=== PATIENT | female | born 1950 | race Caucasian/White ===

== ENCOUNTER 2016-11-16 11:23 | Inpatient (IN) ==
[2016-11-16] MEDS ORDERED: ALUM/MAG/SIMETH/LIDO VISC 1:1 30 ML BOTTLE PO STA (11:53)
[2016-11-16] MEDS ORDERED: SODIUM CHLORIDE 0.9% 500 ML IV STA (11:53)
[2016-11-16] MEDS ORDERED: ONDANSETRON 4 MG/2 ML VIAL IV STA (11:53)
[2016-11-16] MEDS ORDERED: PANTOPRAZOLE 40 MG VIAL IV STA (11:53)
[2016-11-16] MEDS ORDERED: MORPHINE 2 MG/1 ML SYRINGE IV STA (11:53)
[2016-11-16 12:09] LABS: Basophils # 0.1 10*3/uL (0.0-0.2); Basophils % 0.5 % (0.0-0.8); Eosinophils # 0.1 10*3/uL (0.0-0.87); Eosinophils % 0.8 % (0.00-10.9); Hematocrit 45.9 VOL% (35.7-47.0); Hemoglobin 14.8 GM/DL (12.0-16.0); Immature Granulocytes % 0.4 %; Immature Granulocytes Absolute 0.05 #; Lymphocytes # 2.3 10*3/uL (1.4-4.0); Lymphocytes % 18.2 % (21.3-54.2); Mean Corpuscular HGB Conc 32.2 GM/DL (32-36); Mean Corpuscular Hemoglobin 30 PG (27-34); Mean Corpuscular Volume 91.6 FL (87-102); Monocytes # 0.7 10*3/uL (0.11-0.8); Monocytes % 5.3 % (1.7-12.7); Neutrophils # 9.5 10*3/uL (1.4-7.4); Neutrophils % 74.8 % (38.7-73.9); Platelet Count 320 T/CUMM (130-400); Red Blood Count 5.01 MC/CUMM (3.8-5.5); Red Cell Distribution Width 13.4 % (9.3-17.3); White Blood Count 12.6 T/CUMM (4-12)
[2016-11-16] MEDS ORDERED: ONDANSETRON 4 MG/2 ML VIAL ONE (12:10)
[2016-11-16] MEDS ORDERED: PANTOPRAZOLE 40 MG VIAL IV ONE (12:10)
[2016-11-16] MEDS ORDERED: MORPHINE 2 MG/1 ML SYRINGE ONE (12:11)
[2016-11-16] MEDS ORDERED: ALUM/MAG/SIMETH/LIDO VISC 1:1 30 ML BOTTLE PO ONE (12:11)
--- NOTE | 2016-11-16 12:13 | Emergency Department Note ---
Connor Flores Brooke, am scribing for, and in the presence of, Ghulam Lewis MD 12 :00. Debbie Flores Charles R, MD, personally performed the services described in this documentation, ascribed by Camille Ryan in my presence, and it is both accurate and complete . Arrival - Arrival Chief Complaint: Abdominal / Flank Pain Stated Complaint: stomach swollen- right mid pain on side. stomach h ED Nursing Triage Note: generalized abd pain over the past three weeks. reports stomach is getting larger. having some bright red rectal bleeding but reports has some hemmorroids. having loose stools followed by hard stools. Mode of Arrival: Ambulatory Limitations: No Limitations Source: Patient, Family (Daughter), RN Notes Reviewed Time Seen by Provider: 11/16/16 11:43 - History of Present Illness HPI Narrative: Patient is a 66 year old female who presents to the ED with c/o abdominal distention and rectal bleeding. Patient says the abdominal distention has been ongoing for the past three weeks. She says her abdomen is getting bigger. Daughter says Patient went from wearing medium to 2XL. Patient saw Anupam Orantes last week, and had an abdominal x-ray done. She was also given Lasix but she says her abdomen has not gotten any smaller. She says the right side of her abdomen hurts intermittently. She gets short of breath with any exertion and feels like she is smothering when laying flat. She also has been "very gassy " and had mostly watery diarrhea. Patient says she had "three brown and round solid balls of stool." She has also been nauseated for the past couple of days. Patient has had bright red rectal bleeding but states that she does have hemorrhoids. Daughter says she uses about "two or three" ingris-pads, daily. Patient had a colonoscopy, eight years ago, and was told she had polyps and to follow up but never did. She does not have a history of liver or gall bladder problems. Patient has had a hysterectomy. She has PMHx of afib, HTN, and dyslipidemia. She is a smoker. Onset (ago): week(s) (3) Allergies/Adverse Reactions: Allergies Allergy/AdvReac Type Severity Reaction Status Date / Time No Known Allergies Allergy Unverified 05/15/15 17:27 Home Medications: Home Medications Medication Instructions Recorded Confirmed Type HYDROcodone/ACETAMIN 10-325 [[place] 1 tablet PO Q6H PRN #20 tablet 07/06/14 Rx 10-325] Review of System - Review of System 12 point system: reviewed and no additional remarkable complaints except as stated - Review of System Constitutional: Absent: fever Respiratory: Present: other (shortness of breath with exertion). Absent: respiratory distress Gastrointestinal: Present: abdominal pain (right), nausea, diarrhea, other ( Abdominal distention and bright red rectal bleeding.) Skin: Absent: rash Medical,Surgical,& Family Hx - Medical History Cardio: History of: Cardiac Dysrhythmia (atrial fib flutter), Hypertension Endocrine: History of: Dyslipidemia - Social History Smoking Status: Current every day smoker Exam Vital Signs: Vital Signs Temperature 98.5 F 11/16/16 11:30 Pulse Rate 90 11/16/16 11:30 Respiratory Rate 18 11/16/16 11:30 Blood Pressure 127/83 11/16/16 11:30 O2 Sat by Pulse Oximetry 94 L 11/16/16 11:30 - General General appearance: alert, in no apparent distress - Head Head exam: Present: atraumatic, normocephalic - Eye Eye exam: Present: normal appearance, PERRL, EOMI - ENT ENT exam: Present: normal exam - Neck Neck exam: Present: normal inspection - Chest Chest inspection: Present: normal inspection, symmetric chest wall rise - Respiratory Respiratory exam: Present: rhonchi (bilateral) - Cardiovascular Cardiovascular exam: Present: tachycardia, irregular rhythm, normal heart sounds - Abdominal Exam Abdominal exam: Present: distention, hypoactive bowel sounds, other (bloated, gassy, and painful abdomen). Absent: soft - Rectal Exam Rectal exam: Present: other (Rectal bleeding according to Patient) - Extremities Exam Extremities exam: Present: normal inspection - Back Exam Back exam: Present: normal inspection - Neurological Exam Neurological exam: Present: alert, oriented X3 - Psychiatric Psychiatric exam: Present: normal affect, normal mood - Skin Skin exam: Present: warm, dry, intact, normal color Course Course Narrative: Patient has 3 week history of increasing abdominal girth. Patient has ascites. This looks malignant on CT most likely the source of the abdomen possibly metastatic versus some type of gynecological cancer - Consultations Consultation #1: Dr. Orantes will admit patient. 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
[2016-11-16 12:18] LABS: PT Patient Result 10.5 SECS
--- NOTE | 2016-11-16 12:39 | CT Report ---
Exam: CT abdomen and pelvis with intravenous contrast Exam date: 11/16/2016 11:54 AM Clinical History: 66 years,Female, abdominal and pelvic pain, radiating abdominal pain, generalized Technique: Axial computed tomography images of the abdomen and pelvis with intravenous contrast. All CT scans at this facility use one or more dose reduction techniques. Automated exposure control, MA/KV adjustment per patient size (including targeted exam Square dose is matched to indication) or iterative reconstruction technique Comparison: February 01, 2016 Findings: Lower thorax: No acute pathology within the lung bases. Abdomen: Liver: Confluent in size. No focal parenchymal abnormalities Gallbladder and bile ducts: Unremarkable. No calcified stones. No ductal dilatation. Pancreas: Pancreas is normal. Spleen: Spleen is normal. Adrenals: Hyperplastic with nodular appearance bilaterally.. Kidneys and ureters: Normal in size, echotexture and morphology. No hydronephrosis. No ureteral calculus. Stomach and bowel: Scattered diverticula along the distal colon. No active inflammatory changes. Appendix: Prior appendectomy. Pelvis: Bladder: Partially decompressed Reproductive: Prior hysterectomy. Irregular solid and cystic density within the pelvis measures approximately 4.5 cm in dimension, Abdomen and pelvis: Intraperitoneal space: 4 quadrant ascites with intermediate density fluid and innumerable mesenteric and peritoneal nodules with irregular heterogeneously enhancing mesentery along the anterior abdominal wall characteristic for omental caking. Multiple loops of small bowel appear adhesed anteriorly within the lower abdomen Bones/joints: Spondylitic changes throughout the spinal axis.. Soft tissues: No mass Vasculature: No aortic aneurysm. Atheromatous calcifications noted along the aorta and branch vessels. Lymph nodes: No adenopathy Impression: 1. Extensive mesenteric and peritoneal enhancing nodules with omental caking involving the anterior abdominal wall 2. Dominant enhancing nodule within the right hemipelvis, irregular in overall morphology. Differential considerations would include peritoneal metastasis versus ovarian neoplasm. Correlate with prior gynecologic surgical history 3. Four-quadrant ascites, likely malignant. Recommend diagnostic paracentesis PROCEDURE INTERPRETED AT [facility] DEPARTMENT OF RADIOLOGY Final Report Signed by: Guru Cam
[2016-11-16 12:44] LABS: Alanine Aminotransferase 13 U/L (13-56); Albumin 3.3 G/DL (3.4-5.0); Alkaline Phosphatase 93 U/L (45-117); Amylase 263 U/L (25-115); Aspartate Amino Transferase 21 U/L (0-37); Bilirubin,Total < 0.39 MG/DL (0.2-1.0); Blood Urea Nitrogen 9 MG/DL (7-18); Calcium 8.6 MG/DL (8.5-10.1); Glucose 95 MG/DL (74-106); Osmolality,Calculated 273.7 MOS/KG (273-304); Potassium 4.6 MMOL/L (3.5-5.1); Sodium 138 MMOL/L (136-145); Total Protein 6.6 G/DL (6.4-8.3); Troponin I Only < 0.015 NG/ML (0.00-0.045)
[2016-11-16 12:48] LABS: Lactic Acid 1.4 MMOL/L (0.4-2.0)
[2016-11-16 13:08] LABS: Apearance,Urine CLEAR (Clear); Bilirubin,Urine Negative (Negative); Blood, Urine Negative (Negative); Glucose,Urine (UA) Negative (Negative); Ketones,Urine Negative (Negative); Mucus,Urine Occasional /LPF (Occasional); Nitrite,Urine Negative (Negative); Protein,Urine Negative; RBC,Urine 1 /HPF (0-4); Squamous Epithelial Cell,Urine Occasional /HPF (0-10); Urine Color Yellow (Yellow); Urine Specific Gravity 1.048 (1.001-1.035); Urine Urobilinogen < 2.0 EU/DL (0.2-1.0)
--- NOTE | 2016-11-16 13:23 | XRay Report ---
History: Abdominal pain Date: 11/16/2016 Study: Chest x-ray single view Comparison exam: January 10, 2009 The cardiac silhouette is not enlarged. There is no mediastinal mass. There is moderate aortic arch calcification. The pulmonary vasculature is not engorged. There is no gross pleural effusion. There is no confluent infiltrate to suggest pneumonia. Shallow breath. There is osteopenia and mild to moderate thoracic spondylosis. Impression: No acute cardiopulmonary process. No significant interval change PROCEDURE INTERPRETED AT [facility] DEPARTMENT OF RADIOLOGY Final Report Signed by: Dr. Sherrell Dorman
--- NOTE | 2016-11-16 13:24 | XRay Report ---
History: Abdominal pain Date: 11/16/2016 Study: Flat and erect abdomen Comparison exam: No previous similar study There is no evidence of pneumoperitoneum. The bowel gas pattern is nonobstructive. There is contrast material within the genitourinary tract from earlier CT scan. There is no evidence of hydronephrosis. Phleboliths overlie the pelvis. There is moderate degenerative disc disease of the lumbar spine. Impression: No acute abdominal process PROCEDURE INTERPRETED AT [facility] DEPARTMENT OF RADIOLOGY Final Report Signed by: Dr. Sherrell Dorman
[2016-11-16] MEDS ORDERED: MORPHINE 2 MG/1 ML SYRINGE IV PRN (14:19)
[2016-11-16] MEDS ORDERED: LACTULOSE 20 GM/30 ML UDCUP PO PRN (14:19)
[2016-11-16] MEDS ORDERED: GLUCAGON 1 MG VIAL IM PRN (14:19)
[2016-11-16] MEDS ORDERED: ACETAMINOPHEN 325 MG TABLET PO PRN (14:19)
[2016-11-16] MEDS ORDERED: ALBUTEROL/IPRATROPIUM 3 ML NEB RESP TX PRN (14:19)
[2016-11-16] MEDS ORDERED: DEXTROSE 50% 25 GM/50 ML SYRINGE IV PRN (14:19)
[2016-11-16] MEDS: SODIUM CHLORIDE 0.9% 1,000 ML IV SCH (15:07)
[2016-11-16] MEDS: methylPREDNISolone SOD SUC 40 MG/1 ML VIAL IV SCH ×2 (15:51→22:07)
[2016-11-16] MEDS ORDERED: diphenhydrAMINE CAP 25 MG CAPSULE PO PRN (16:03)
[2016-11-16] MEDS: INSULIN REGULAR 100 UNIT/ML SUBCUT SCH ×2 (18:40→20:44)
--- NOTE | 2016-11-16 19:57 | Ultrasound Report ---
Exam: Ultrasound-guided paracentesis Clinical history: Ascites, possibly malignant Physician: Dr. Kuldip Cam Procedure: Informed consent was obtained prior to procedure. A formal timeout was performed. Maximum sterile barrier technique was used. The right lower quadrant was prepped and draped in sterile fashion. Under sonographic guidance, a 6 Ivorian safety centesis catheter and needle were advanced into the ascites using trocar technique. A captured sonographic image documents needle position. The needle was removed. Through the catheter, we obtained a total of 250 cc of straw-colored ascites. No additional fluid could be obtained. Therefore, the catheter was removed. A bandage was placed at the puncture site. The patient tolerated the procedure well. Complications: None. Estimated blood loss: Less than 5 mL. Impression: Technically successful ultrasound guided paracentesis. PROCEDURE INTERPRETED AT [facility] DEPARTMENT OF RADIOLOGY Final Report Signed by: Guru Cam
[2016-11-16] MEDS: DOCUSATE SODIUM 100 MG CAPSULE PO SCH (20:44)
[2016-11-16] MEDS: ALPRAZolam 0.5 MG TABLET PO SCH (20:44)
[2016-11-16] MEDS: METOPROLOL TARTRATE 50 MG TABLET PO SCH (20:44)
[2016-11-16] MEDS: ROSUVASTATIN 10 MG TABLET PO SCH (20:44)
[2016-11-16] MEDS: ENOXAPARIN 40 MG/0.4 ML SYRINGE SUBCUT SCH (20:45)
[2016-11-16 20:59] LABS: RBC,Peritoneal Fluid 3627 T/CUMM
[2016-11-16 21:03] LABS: Neutrophils,Peritoneal Fluid 13 %
--- NOTE | 2016-11-17 06:26 | Family Practice History&Phys ---
Assessment and Plan (1) Abdominal pain Status: Acute Assessment and plan: 11/16/2016: Patient clearly has abdominal distention/ascites probable metastatic nodules. Getting oncology consult and GI services to see her. Paracentesis has been performed Current Visit: Yes (2) COPD (chronic obstructive pulmonary disease) Status: Acute Assessment and plan: 11/17/2016: Patient is on 2 L of O2 at present. Not having any respiratory distress although she is a little short of breath secondary to abdominal distention Current Visit: Yes (3) Rectal bleeding Status: Acute Assessment and plan: 11/16/2016: Presumably from hemorrhoids had some bright red bleeding but not any bleeding at present Current Visit: Yes History of Present Illness Chief complaint: Abdominal distention History of present illness: Ms. Mccarthy is a 66 year old female Well-known to me came to my clinic about a week ago with some moderate abdominal distention. Had been going on about a week and 1/2-2 prior to being seen. She thought it was mostly bloating, had been having some gas. A flat and upright abdomen revealed no air-fluid free air. Elected to watch it for a few more days at that time. Patient came back to the emergency room last night with worsening distention. CT scan of the abdomen and pelvis was done which revealed alfred four-quadrant ascites and diffuse mesenteric and peritoneal nodules. She has been having a little bit of shortness of breath associated with this, especially some orthopnea. Also having some mild diffuse discomfort related to the swelling. Recently had a little bleeding presumably from hemorrhoids, this is mostly resolved. We are going to put in the hospital and get a GI consult along with oncology. He had an did a abdominal paracentesis for comfort as well as diagnostic evaluation. This is done her original radiology of her shift are systems from this case. Patient's history is mostly unremarkable otherwise except for atrial fibrillation, hypertension and anemia. Her daughter is a nurse in the hospital. I have discussed this with her Home Medications Medication Instructions Recorded Confirmed Type ALPRAZolam [Alprazolam] 0.5 mg PO BID 11/16/16 11/16/16 History Aspirin EC Tab 81 mg PO MOWEFR@0800 11/16/16 11/16/16 History Cyanocobalamin (Vitamin B-12) 1,000 mcg PO QAM 11/16/16 11/16/16 History [Vitamin B-12] Krill/Om-3/Dha/Epa/Phospho/Ast 1 each PO QAM 11/16/16 11/16/16 History [[place]-3 Krill Oil 300 mg Sfgl] Levothyroxine Tab [Synthroid Tab] 50 mcg PO DAILY@0700 11/16/16 11/16/16 History Metoprolol Tartrate 50 mg PO DAILY@1700 11/16/16 11/16/16 History Montelukast Tab [Singulair Tab] 10 mg PO QAM 11/16/16 11/16/16 History Rosuvastatin [Crestor] 10 mg PO BEDTIME 11/16/16 11/16/16 History dilTIAZem HCl [Diltiazem ER] 240 mg PO QAM 11/16/16 11/16/16 History diphenhydrAMINE CAP [Benadryl Cap] 50 mg PO BEDTIME PRN 11/16/16 11/16/16 History Allergies Allergy/AdvReac Type Severity Reaction Status Date / Time No Known Allergies Allergy Unverified 07/06/14 17:27 12 point system: reviewed and no additional remarkable complaints except as stated (Except as mentioned in history and physical.) - Constitutional Constitutional: Present: fatigue - EENT Nose, mouth and throat: Absent: dysphagia - Respiratory Respiratory: Present: dyspnea Medical,Surgical,& Family Hx - Medical History Cardio: History of: Cardiac Dysrhythmia (atrial fib flutter), Hypertension Psychological: History of: Anxiety Disorders, Depression Endocrine: History of: Dyslipidemia, Thyroid Disorder (hypo- snythroid) Renal: History of: Renal Problems (spot on kidney- negative so far) Gastrointestinal: History of: GI Problems (hemmroid bleeding and chronic diareah ) - Surgical History Abdominal Surgeries: Surgical HX of: Colonoscopy (8 years ago- polyps 2year follow up. never went back) Patient denies: EGD Reproductive Surgeries: Surgical HX of;: Hysterectomy (25-30 years ago. bladder & rectal tach, left overaries) - Family History Family History: Reports;: Family Anesthesia Reaction, Family Cancer (sister- brain mets double mastectomy), Family Diabetes, Family Heart Disease, Family Hypertension, Family Psychiatric Problems, Family Stroke - Social History Smoking Status: Current every day smoker Frequency of Alcohol Use: None Type of Drug Use: None Exam - Constitutional Vitals: Period Temp Pulse Resp BP Sys/Deutsch Pulse Ox Last 24 Hr 97.3 F-98.5 F 64-92 16-20 108-161/58-85 90-97 Exam: Generally very pleasant lady. She is alert and oriented no acute distress except for some mild to moderate shortness of breath related to abdominal pressure and pulmonary field. HEENT pupils are equally reactive to light neck is supple trachea midline oropharynx is normal Cardiovascular no gallop or rub patient denies any chest pain Lungs a few basal rales but no respiratory distress Abdomen is noted with ascites per CT scan of abdomen and pelvis. Extremities no clubbing cyanosis or edema, positive radial pulses, dorsalis pedal pulses Results - Labs CBC & BMP: 11/16/16 11:58 11/16/16 11:58
[2016-11-17 06:30] LABS: Basophils % 0.1 % (0.0-0.8); Hematocrit 40.1 VOL% (35.7-47.0); Immature Granulocytes % 0.7 %; Immature Granulocytes Absolute 0.07 #; Lymphocytes % 9.4 % (21.3-54.2); Mean Corpuscular HGB Conc 32.4 GM/DL (32-36); Mean Corpuscular Hemoglobin 30 PG (27-34); Mean Corpuscular Volume 92.4 FL (87-102); Mean Platelet Volume 9.4 FL (9.6-12.0); Monocytes # 0.1 10*3/uL (0.11-0.8); Monocytes % 1.1 % (1.7-12.7); Neutrophils # 9.3 10*3/uL (1.4-7.4); Neutrophils % 88.7 % (38.7-73.9); Platelet Count 278 T/CUMM (130-400); Red Blood Count 4.34 MC/CUMM (3.8-5.5); Red Cell Distribution Width 13.3 % (9.3-17.3); White Blood Count 10.4 T/CUMM (4-12)
[2016-11-17] MEDS: methylPREDNISolone SOD SUC 40 MG/1 ML VIAL IV SCH ×2 (06:30→16:35)
[2016-11-17] MEDS: LEVOTHYROXINE 50 MCG TABLET PO SCH (06:32)
[2016-11-17 06:47] LABS: Albumin 2.8 G/DL (3.4-5.0); Bilirubin,Total 0.7 MG/DL (0.2-1.0); Calcium 8.2 MG/DL (8.5-10.1); Magnesium 2.4 MG/DL (1.8-2.4); Osmolality,Calculated 280.4 MOS/KG (273-304); Potassium 4.6 MMOL/L (3.5-5.1); Risk Ratio 3.12; Total Protein 6.1 G/DL (6.4-8.3); VLDL CHOLESTEROL 19.8 MG/DL
[2016-11-17] MEDS: INSULIN REGULAR 100 UNIT/ML SUBCUT SCH ×4 (07:12→20:53)
--- NOTE | 2016-11-17 08:58 | Oncology Progress Note ---
Oncology Subjective PN Interval history: Patient with several week history of abdominal distention admitted now status post paracentesis. Cytology is pending as well as CA 125 levels. The patient does have a strongly positive family history of malignancy with one sister succumbing to metastatic breast cancer. The remainder of the family history was not detailed but is noted to be positive per the patient's daughter's report who is a nurse here at [employer]. There is also report of rectal bleeding also for a few weeks requiring absorptive pads. Her last colonoscopy was about 8 years ago. She has extreme abdominal distention but does not appear in acute distress. She does report being up-to-date on mammogram herself. My initial presumption on this case is most likely ovarian cancer. Would need to exclude colon cancer given the rectal bleeding although she is not anemic. If ovarian cancer is diagnosed, then she would need to see gynecologic oncology although I think neoadjuvant chemotherapy would be the preferred initial plan of care. I will follow closely during this hospitalization. Exam - Constitutional Vitals: Period Temp Pulse Resp BP Sys/Deutsch Pulse Ox Last 24 Hr 97.2 F-98.5 F 64-92 16-20 108-161/58-85 90-97 Results - Labs CBC & BMP: 11/17/16 05:46 11/17/16 05:46
[2016-11-17] MEDS: CYANOCOBALAMIN 500 MCG TABLET PO SCH (09:42)
[2016-11-17] MEDS: MONTELUKAST 10 MG TABLET PO SCH (09:42)
[2016-11-17] MEDS: DILTIAZEM CD 240 MG CAPSULE PO SCH (09:42)
[2016-11-17] MEDS: OMEGA 3 ACID ETHYL ESTERS 1 GM CAPSULE PO SCH (09:44)
[2016-11-17] MEDS: DOCUSATE SODIUM 100 MG CAPSULE PO SCH ×2 (09:44→20:53)
[2016-11-17] MEDS: ALPRAZolam 0.5 MG TABLET PO SCH ×2 (09:44→20:53)
[2016-11-17] MEDS: PANTOPRAZOLE 40 MG VIAL IV SCH (09:44)
[2016-11-17 09:45] LABS: Carcinoembryonic Antigen < 0.5 NG/ML (0.0-5.0)
--- NOTE | 2016-11-17 09:56 | XRay Report ---
XR chest 2V Indication: Shortness of breath. Chest 2 views: Comparison yesterday shows stable normal heart size, elevated right hemidiaphragm, but increased interstitial prominence of the lungs with peribronchial thickening. Pleural spaces remain clear. No focal pneumonia shown. Impression: Increased interstitial prominence of the lungs, either mild fluid overload or exacerbation of airways disease. PROCEDURE INTERPRETED AT [facility] DEPARTMENT OF RADIOLOGY Final Report Signed by: Zane Ryan M.D.
--- NOTE | 2016-11-17 10:37 | Gastrointestinal Consult Note ---
<Elisa Ness - Last Filed: 11/17/16 10:31> Assessment and Plan (1) Abdominal pain Status: Acute Assessment and plan: [id number] history of abdominal distention and discomfort with also reported rectal bleeding. CT findings on yesterday noted as below. CA 125 is pending at present time. Prior endoscopy noted as below. Change to clear liquid diet anticipate potential colonoscopy on tomorrow for further evaluation of rectal bleeding. Plan an addendum to follow Dr. George. Current Visit: Yes History of Present Illness Chief complaint: Abdominal distention History of present illness: Ms. Mccarthy is a 66 year old female who was admitted to the hospital yesterday after being seen by Dr. Orantes in clinic. Patient states that she was in her usual state of health until approximately 3 weeks ago when she noticed that she had onset of some abdominal bloating and distention. She states that she also had an onset of some bright red rectal bleeding with and without bowel movements. Patient does state that she is not very compliant with going to her physician for regular checkups however approximately a week and a half ago she did present to the clinic to see Dr. Orantes due to the abdominal distention was worsening. At that time she apparently had an abdominal x-ray with no acute findings and was placed on some laxatives and sent home. Patient states that the distention continued as well as off-and-on rectal bleeding until she contacted Dr. Orantes's office again on yesterday. Patient then had a CT of the abdomen at that time with IV contrast which showed extensive mesenteric and peritoneal and enhancing nodules with omental caking of the anterior abdominal wall as well as nodule to the right hemipelvis with differential of peritoneal metastasis versus ovarian neoplasm. Patient was also found to have ascites. Patient has had hysterectomy in the past however states she did not have an oophorectomy. She was admitted for further workup and last night she underwent diagnostic paracentesis with 250 cc of fluid removed. Dr. Truong is also consulted with patient at this time in she has noted to have a negative CEA as well as CA-19-9 however CA 125 is pending. Patient has a very strong history of cancer throughout her family. She states that she has 17 siblings and several of them have from cancer with some of them at fairly early ages. Patient states she has not had any abdominal pain, nausea or vomiting. She has not had any recent weight loss, night sweats or chills. She states that her last colonoscopy was approximately 8 years ago however she does not recall the findings at that time. This was done by Dr. George. Patient admits that she is not very compliant with her follow-up appointments as well and did not return as recommended for repeat colon scope. H&H is stable at 13/40. Home Medications Medication Instructions Recorded Confirmed Type ALPRAZolam [Alprazolam] 0.5 mg PO BID 11/16/16 11/16/16 History Aspirin EC Tab 81 mg PO MOWEFR@0800 11/16/16 11/16/16 History Cyanocobalamin (Vitamin B-12) 1,000 mcg PO QAM 11/16/16 11/16/16 History [Vitamin B-12] Krill/Om-3/Dha/Epa/Phospho/Ast 1 each PO QAM 11/16/16 11/16/16 History [[place]-3 Krill Oil 300 mg Sfgl] Levothyroxine Tab [Synthroid Tab] 50 mcg PO DAILY@0700 11/16/16 11/16/16 History Metoprolol Tartrate 50 mg PO DAILY@1700 11/16/16 11/16/16 History Montelukast Tab [Singulair Tab] 10 mg PO QAM 11/16/16 11/16/16 History Rosuvastatin [Crestor] 10 mg PO BEDTIME 11/16/16 11/16/16 History dilTIAZem HCl [Diltiazem ER] 240 mg PO QAM 11/16/16 11/16/16 History diphenhydrAMINE CAP [Benadryl Cap] 50 mg PO BEDTIME PRN 11/16/16 11/16/16 History Allergies Allergy/AdvReac Type Severity Reaction Status Date / Time No Known Allergies Allergy Unverified 07/06/14 17:27 Medical,Surgical,& Family Hx - Medical History Cardio: History of: Cardiac Dysrhythmia (atrial fib flutter), Hypertension Psychological: History of: Anxiety Disorders, Depression Endocrine: History of: Dyslipidemia, Thyroid Disorder (hypo- snythroid) Renal: History of: Renal Problems (spot on kidney- negative so far) Gastrointestinal: History of: GI Problems (hemmroid bleeding and chronic diareah ) - Surgical History Abdominal Surgeries: Surgical HX of: Colonoscopy (8 years ago- polyps 2year follow up. never went back) Patient denies: EGD Reproductive Surgeries: Surgical HX of;: Hysterectomy (25-30 years ago. bladder & rectal tach, left overaries) - Family History Family History: Reports;: Family Anesthesia Reaction, Family Cancer (sister- brain mets double mastectomy), Family Diabetes, Family Heart Disease, Family Hypertension, Family Psychiatric Problems, Family Stroke - Social History Smoking Status: Current every day smoker Frequency of Alcohol Use: None Type of Drug Use: None 12 point system: reviewed and no additional remarkable complaints except as stated - Constitutional Constitutional: Present: as per HPI - EENT Eyes: Present: as per HPI Ears: Present: as per HPI Nose, mouth and throat: Present: as per HPI - Cardiovascular Cardiovascular: Present: as per HPI - Respiratory Respiratory: Present: as per HPI - Gastrointestinal Gastrointestinal: Present: as per HPI, bloating, hematochezia - Genitourinary Genitourinary: Present: as per HPI - Musculoskeletal Musculoskeletal: Present: as per HPI - Neurological Neurological: Present: as per HPI - Psychiatric Psychiatric: Present: as per HPI - Endocrine Endocrine: Present: as per HPI - Hematologic/Lymphatic Hematologic/Lymphatic: Present: as per HPI Exam - Constitutional Vitals: Period Temp Pulse Resp BP Sys/Deutsch Pulse Ox Last 24 Hr 97.2 F-98.5 F 64-92 16-20 108-161/58-85 90-97 General appearance: normal weight, no acute distress - Head Head exam: Present: normal inspection, normocephalic - Eye Eye exam: Present: other (Lids and conjunctivae are unremarkable). Absent: scleral icterus - ENT ENT exam: Present: normal exam, normal oropharynx - Neck Neck exam: Present: normal inspection - Respiratory Respiratory exam: Present: clear to auscultation bilaterally. Absent: rales, rhonchi, wheezes - Cardiovascular Cardiovascular exam: Present: regular rate and rhythm. Absent: diastolic murmur , JVD, systolic murmur - GI/Abdominal GI/Abdominal exam: Present: normal bowel sounds, ascites, distended, tenderness , soft. Absent: mass, organomegaly - Extremities Exam Extremities exam: Present: normal inspection, full ROM - Back Exam Back exam: Present: normal inspection - Neurological Exam Neurological exam: Present: alert, oriented X3 - Psychiatric Psychiatric exam: Present: normal affect, normal mood - Skin Skin exam: Present: normal color, warm, dry Results - Labs CBC & BMP: 11/17/16 05:46 11/17/16 05:46 Lab Results: I have reviewed the past 24 hour labs - Diagnostic Findings Procedure: CT Abdomen and Pelvis: report reviewed by me <Fede George - Last Filed: 11/17/16 20:36> History of Present Illness Chief complaint: 3030 History of present illness: Ms. Mccarthy is a 66 year old female Exam - Constitutional Vitals: Period Temp Pulse Resp BP Sys/Deutsch Pulse Ox Last 24 Hr 97.2 F-98.2 F 60-79 18-20 108-124/58-73 90-95 Results - Labs CBC & BMP: 11/17/16 05:46 11/17/16 05:46
[2016-11-17] MEDS ORDERED: BISACODYL 5 MG TABLET PO ONE (12:00)
[2016-11-17] MEDS ORDERED: POLYETHYLENE GLYCOL POWDER 255 GM BOTTLE PO ONE (13:00)
[2016-11-17] MEDS: ONDANSETRON 4 MG/2 ML VIAL IV PRN ×2 (16:32→22:22)
[2016-11-17] MEDS: METOPROLOL TARTRATE 50 MG TABLET PO SCH (16:34)
[2016-11-17] MEDS: SODIUM CHLORIDE 0.9% 1,000 ML IV SCH (18:54)
[2016-11-17] MEDS: ENOXAPARIN 40 MG/0.4 ML SYRINGE SUBCUT SCH (20:52)
[2016-11-17] MEDS: ROSUVASTATIN 10 MG TABLET PO SCH (20:53)
[2016-11-17] MEDS ORDERED: MAGNESIUM CITRATE 300 ML BOTTLE PO ONE (21:00)
[2016-11-18] MEDS: methylPREDNISolone SOD SUC 40 MG/1 ML VIAL IV SCH ×3 (00:25→16:12)
[2016-11-18] MEDS: LEVOTHYROXINE 50 MCG TABLET PO SCH (06:32)
[2016-11-18] MEDS ORDERED: ASPIRIN EC 81 MG TABLET PO SCH (08:00)
[2016-11-18] MEDS: INSULIN REGULAR 100 UNIT/ML SUBCUT SCH ×3 (08:26→15:53)
--- NOTE | 2016-11-18 08:26 | Oncology Progress Note ---
Oncology Subjective PN Interval history: Stable overnight. Case discussed again with patient and daughter. For colonoscopy today. CEA and CA 19 are normal. Unfortunately the CA 125 ovarian cancer antigen is no longer performed at [facility] and is an approximately 2-3 day turnaround time due to its send out status. This may actually lead to a longer hospitalization. We are also waiting cytology which I anticipate later today. I have given the nurses instructions to forward these results to me. We did discuss the possibility of a diagnostic laparoscopy if the tumor marker and cytology are not helpful. Exam - Constitutional Vitals: Period Temp Pulse Resp BP Sys/Deutsch Pulse Ox Last 24 Hr 96.8 F-98.2 F 60-85 18-20 116-124/64-76 90-94 Results - Labs CBC & BMP: 11/17/16 05:46 11/17/16 05:46
[2016-11-18] MEDS: MONTELUKAST 10 MG TABLET PO SCH (08:27)
[2016-11-18] MEDS: OMEGA 3 ACID ETHYL ESTERS 1 GM CAPSULE PO SCH (08:27)
[2016-11-18] MEDS: ALPRAZolam 0.5 MG TABLET PO SCH (08:27)
[2016-11-18] MEDS: CYANOCOBALAMIN 500 MCG TABLET PO SCH (08:27)
[2016-11-18] MEDS: DOCUSATE SODIUM 100 MG CAPSULE PO SCH (08:27)
[2016-11-18] MEDS: DILTIAZEM CD 240 MG CAPSULE PO SCH (08:36)
[2016-11-18] MEDS: PANTOPRAZOLE 40 MG VIAL IV SCH (08:37)
[2016-11-18] MEDS ORDERED: PROPOFOL 200 MG/20 ML VIAL IV ONE (11:57)
[2016-11-18] MEDS ORDERED: LIDOCAINE 2% 5 ML VIAL ONE (11:57)
--- NOTE | 2016-11-18 12:11 | Operative Note ---
Date of procedure: 11/18/16 Pre-op diagnosis: Abnormal CT for screening colonoscopy Procedure: Colonoscopy 66-year-old female with abnormal CT and suspected malignant ascites of unclear etiology now for screening colonoscopy. Informed consent was obtained for the patient She was sedated with general anesthesia per anesthesia protocol. Patient was placed in left lateral decubitus position digital exam was normal the Olympus flexible video colonoscope was inserted into the anal canal advanced under direct vision level cecum. Findings: Withdrawal time 7 minutes Prep fair Cecum-normal identified ileocecal valve and appendiceal orifice. Exam limited by prep Descending: Normal exam limited by prep Transverse:-Normal exam limited by prep Descending colon-diverticulosis exam limited by prep Sigmoid colon diverticulosis exam limited by prep Rectum-normal to direct retroflexed views 2+ internal hemorrhoids seen. No mass lesion seen throughout the colon. The procedure terminated placed our procedure well she is discharge recovery in good condition Postop diagnosis: 1. Diverticulosis-maintain adequate fiber and fluid intake 2. Abnormal CT-no colonic explanation suspect this is ovarian in origin and would continue oncologic workup per Dr. recio Anesthesia: other (General) Surgeon / Physician: Fede George Estimated blood loss: none Specimens: none sent Condition: stable Disposition: post procedure unit Results - Labs CBC & BMP: 11/17/16 05:46 11/17/16 05:46 Discharge Plan - Discharge Medications No Action ALPRAZolam [Alprazolam] 0.5 mg PO BID Aspirin EC Tab 81 mg PO MOWEFR@0800 Cyanocobalamin (Vitamin B-12) [Vitamin B-12] 1,000 mcg PO QAM dilTIAZem HCl [Diltiazem ER] 240 mg PO QAM diphenhydrAMINE CAP [Benadryl Cap] 50 mg PO BEDTIME PRN PRN Reason: Insomnia Levothyroxine Tab [Synthroid Tab] 50 mcg PO DAILY@0700 Metoprolol Tartrate 50 mg PO DAILY@1700 Montelukast Tab [Singulair Tab] 10 mg PO QAM Rosuvastatin [Crestor] 10 mg PO BEDTIME Krill/Om-3/Dha/Epa/Phospho/Ast [[place]-3 Krill Oil 300 mg Sfgl] 1 each PO QAM - Follow Up or Referral - Forms/Instructions
--- NOTE | 2016-11-18 13:48 | Anesthesia Post-Op ---
Anesthesia Post OP - Post Ansesthetic Evaluation Patient seen in post op: Yes Resp: within normal limits CV: within normal limits Mental: within normal limits Temp: within normal limits Fsxm-Xd-Brbeosear: within normal limits Nausea and Vomiting: within normal limits Pain: within normal limits
[2016-11-18] MEDS: SODIUM CHLORIDE 0.9% 1,000 ML IV SCH (14:27)
[2016-11-18 16:01] VITALS: BP 126/63
[2016-11-18] MEDS: METOPROLOL TARTRATE 50 MG TABLET PO SCH (16:12)
--- NOTE | 2016-11-18 16:40 | Discharge Summary ---
Hospital Course - Hospital Course Hospital Course: Patient came in with abdominal distention. She had a CT scan done which showed cancer nodules all throughout her abdominal cavity with severe ascites and some exudate in the peritoneal cavity. She does not have any abdominal pain. We did do a paracentesis, only got about 280 cc out but sent for cytology and pathology. She is going to be followed with oncology as well as gastroenterology. We are going to get surgery involved depending on the studies of the test. We are awaiting the CA 125 ovarian cancer antigen result at this time. Patient is to follow with me in about a month or sooner if needed if she has any shortness of breath or worsening of symptoms to come back to my clinic as well. She may need a repeat paracentesis if swelling continues. We will continue to try to maintain her lifestyle as close to normal as she has been. Diagnosis - Discharge Diagnosis (1) Abdominal pain Status: Acute (2) COPD (chronic obstructive pulmonary disease) Status: Acute (3) Rectal bleeding Status: Acute Specialty Discharge - Follow Up or Referrals Follow up with: Anupam Orantes DO [Family Provider] - 1 Month Discharge Plan - Discharge Data Disposition: Disch To Home/Self Care Condition at Discharge: Stable Discharge Diet: advance to your usual diet Activity: resume usual activities as tolerated Hygiene: no restrictions Weight Bearing at Discharge: weight bear as tolerated Driving: no restrictions Contact your physician if you experience:: fever over 101, Shortness of breath - Discharge Medications Continue ALPRAZolam [Alprazolam] 0.5 mg PO BID Aspirin EC Tab 81 mg PO MOWEFR@0800 Cyanocobalamin (Vitamin B-12) [Vitamin B-12] 1,000 mcg PO QAM dilTIAZem HCl [Diltiazem 24Hr ER] 240 mg PO QAM diphenhydrAMINE CAP [Benadryl Cap] 50 mg PO BEDTIME PRN PRN Reason: Insomnia Levothyroxine Tab [Synthroid Tab] 50 mcg PO DAILY@0700 Metoprolol Tartrate 50 mg PO DAILY@1700 Montelukast Tab [Singulair Tab] 10 mg PO QAM Rosuvastatin [Crestor] 10 mg PO BEDTIME Krill/Om-3/Dha/Epa/Phospho/Ast [[place]-3 Krill Oil 300 mg Sfgl] 1 each PO QAM - Follow Up or Referral Follow Up: Anupam Orantes DO [Family Provider] - 1 Month - Forms/Instructions Exam - Constitutional Vitals: Period Temp Pulse Resp BP Sys/Deutsch Pulse Ox Last 24 Hr 96.6 F-98.2 F 58-85 16-20 97-142/50-76 90-98 Discharge Results Procedures and tests throughout hospitalization: Pending Orders 11/16/16 19:24 Cytology Request Routine Labs on day of discharge: Labs from last 24 hours 11/16/16 11:58 CA 125 Antigen 1051 H DS: Provider Date of admission: 11/16/16 12:55 Primary care physician: . No PCP Attending physician on admission: Anupam Orantes DO Consults: 11/16/16 14:19 Consult to Case Mgmt/Social Srvs [CONS] Routine Reason for Case Mgmt/Social Srvs: Discharge Planning 11/16/16 15:59 Consult to Physician [CONS] Routine Comment: Consulting Provider: 11/16/16 16:00 Consult to Physician [CONS] Routine Comment: ascites/cancer Consulting Provider: Fede George Person Notified: GABRIEL Date Notified: 11/17/16 Time Notified: 10:40 11/16/16 16:01 Consult to Physician [CONS] Routine Comment: abdominal mets Consulting Provider: Zane Truong Person Notified: MIRELLA Date Notified: 11/17/16 Time Notified: 08:39 Discharging clinician: Anupam Orantes DO
--- NOTE | 2016-11-19 18:15 | Pathology Report from [facility] ---
[facility] [place] ACCESSION # : [id number] PATIENT NAME : Rosario Mccarthy ORDERING DR : VASU SAENZ MD CLINICAL HX: Ascites, possibly malignant POST-OP DX: Same SPECIMEN INFO: Fluid,Paracentesis - 3 syringes with combined volume of 170 mls jessica, cloudy CLASS: IV CLASS COMMENTS: Few atypical cell groups, favor malignant.CELL BLOCK: Rare atypical cell groups are CEA-/ ER-/ CDX2-/ calretinin-/ CA-125+(focal weak/ indeterminate). CLASS LEGEND: CLASS 0 Material inadequate for diagnosis because of (see comment) CLASS I Absence of atypical or abnormal cells CLASS II Atypical Cytology but no evidence of malignancy CLASS III Cytology suggestive of but not conclusive for malignancy CLASS IV Cytology strongly suggestive of malignancy CLASS V Cytology conclusive for malignancy COLLECTED DATE: 11/17/2016 [facility] REPORT DATE: 11/19/2016 ELECTRONICALLY SIGNED BY: Yusuf Baker M.D. 11/19/2016 - 14:48:05 [email or web address]
--- NOTE | 2016-11-23 08:19 | Physician Query Form ---
CLICK EDIT DOCUMENT TO SELECT QUERY ANSWER --> OK --> SIGN Lary Shah RN [employer] W) [phone] (f) [phone] [email or web address] PROVIDERS: Make your selection(s) from the choices in EACH section by typing an "x" and enter comments in the comment section. Please use your independent medical judgment in providing your response. This request does not imply that any particular answer is desired or expected. CLINICAL INDICATORS: (Providers should not edit this section) Based on documentation of "My initial presumption on this case is most likely ovarian cancer". Pathology report states "CLASS: IV. CLASS COMMENTS: Few atypical cell groups, favor malignant.CELL BLOCK: Rare atypical cell groups are CEA-/ ER-/ CDX2-/ calretinin-/ CA-125+(focal weak/indeterminate)". CA-125 = 1051. Based on the above, could you clarify the appropriate diagnosis, if significant , that supports the above abnormalities and additional evaluation, monitoring, and/or treatment rendered: (x ) Pt. has ovarian cancer ( ) Pt. does not have ovarian cancer ( ) Other, please specify: ( ) Clinically unable to determine COMMENTS: PLEASE ALSO DOCUMENT RESPONSE IN PROGRESS NOTES AND/OR DISCHARGE SUMMARY Use of terms such as suspected, likely, or probable (associated with a specific diagnosis that is being evaluated, monitored, or treated as if it exists) are acceptable and can be restated in the discharge summary if not ruled out. MTDD
== END 2016-11-18 18:16 | disposition home or self-care (01) | DRG 375 ==
LOC: N.ED 11:23 → N.EDINP 12:55 → N.2E 14:17
PROVIDERS: ADMIT Family Medicine; ATTEND Family Medicine

== ENCOUNTER 2020-07-09 13:51 | Observation (INO) ==
[2020-07-09] MEDS ORDERED: GLUCAGON 1 MG VIAL IM PRN (15:46)
[2020-07-09] MEDS ORDERED: ONDANSETRON 4 MG/2 ML VIAL IV PRN (15:46)
[2020-07-09] MEDS ORDERED: DEXTROSE 50% 25 GM/50 ML VIAL IV PRN (15:46)
[2020-07-09] MEDS ORDERED: ACETAMINOPHEN 325 MG TABLET PO PRN (15:46)
[2020-07-09 16:18] LABS: Basophils # 0.1 10*3/uL (0.0-0.2); Basophils % 0.7 % (0.0-0.8); Eosinophils # 0.1 10*3/uL (0.0-0.87); Eosinophils % 1.3 % (0.00-10.9); Hematocrit 38.1 VOL% (35.7-47.0); Hemoglobin 12.1 GM/DL (12.0-16.0); Immature Granulocytes % 0.8 %; Immature Granulocytes Absolute 0.07 #; Lymphocytes # 1.9 10*3/uL (1.4-4.0); Lymphocytes % 21.9 % (21.3-54.2); Mean Corpuscular HGB Conc 31.8 GM/DL (32-36); Mean Corpuscular Volume 98.7 FL (87-102); Mean Platelet Volume 10.1 FL (9.6-12.0); Monocytes % 8.2 % (1.7-12.7); Neutrophils % 67.1 % (38.7-73.9); Platelet Count 149 T/CUMM (130-400); Red Blood Count 3.86 MC/CUMM (3.8-5.5); Red Cell Distribution Width 17.6 % (9.3-17.3); White Blood Count 8.5 T/CUMM (4-12)
[2020-07-09 16:35] LABS: Alanine Aminotransferase 16 U/L (13-56); Albumin 1.6 G/DL (3.4-5.0); Alkaline Phosphatase 182 U/L (45-117); Aspartate Amino Transferase 38 U/L (0-37); Bilirubin,Total < 0.39 MG/DL (0.2-1.0); Blood Urea Nitrogen 22 MG/DL (7-18); Calcium 8.2 MG/DL (8.5-10.1); Carbon Dioxide 25 MMOL/L (21-32); Estimated Glom Filtration Rate 43 ML/MIN; Glucose 92 MG/DL (74-106); Osmolality,Calculated 275.8 MOS/KG (273-304); Potassium 4.8 MMOL/L (3.5-5.1); Sodium 137 MMOL/L (136-145); Total Protein 5.1 G/DL (6.4-8.2)
[2020-07-09 16:41] LABS: Thyroid Stimulating Hormone 7.63 uIU/ml (0.358-3.74)
[2020-07-09] MEDS: SODIUM CHLORIDE 0.9% 1,000 ML IV SCH (17:08)
[2020-07-09] MEDS ORDERED: ENOXAPARIN 30 MG/0.3 ML SYRINGE SUBCUT SCH (21:00)
[2020-07-10] MEDS: VANCOMYCIN 50 MG/ML 60 ML/BOTTLE PO SCH ×5 (01:00→23:58)
[2020-07-10 06:11] LABS: Basophils # 0.1 10*3/uL (0.0-0.2); Basophils % 0.8 % (0.0-0.8); Eosinophils # 0.2 10*3/uL (0.0-0.87); Eosinophils % 3.8 % (0.00-10.9); Hematocrit 35.7 VOL% (35.7-47.0); Hemoglobin 11.1 GM/DL (12.0-16.0); Immature Granulocytes % 1.1 %; Immature Granulocytes Absolute 0.07 #; Lymphocytes # 1.9 10*3/uL (1.4-4.0); Lymphocytes % 29.7 % (21.3-54.2); Mean Corpuscular HGB Conc 31.1 GM/DL (32-36); Mean Corpuscular Volume 100.3 FL (87-102); Mean Platelet Volume 9.8 FL (9.6-12.0); Monocytes % 10.1 % (1.7-12.7); Neutrophils % 54.5 % (38.7-73.9); Platelet Count 149 T/CUMM (130-400); Red Blood Count 3.56 MC/CUMM (3.8-5.5); Red Cell Distribution Width 17.3 % (9.3-17.3); White Blood Count 6.4 T/CUMM (4-12)
[2020-07-10 06:31] LABS: Alanine Aminotransferase 15 U/L (13-56); Albumin 1.5 G/DL (3.4-5.0); Alkaline Phosphatase 166 U/L (45-117); Aspartate Amino Transferase 35 U/L (0-37); Bilirubin,Total < 0.39 MG/DL (0.2-1.0); Blood Urea Nitrogen 20 MG/DL (7-18); Calcium 7.6 MG/DL (8.5-10.1); Carbon Dioxide 26 MMOL/L (21-32); Estimated Glom Filtration Rate 62 ML/MIN; Glucose 69 MG/DL (74-106); Osmolality,Calculated 275.7 MOS/KG (273-304); Potassium 4.5 MMOL/L (3.5-5.1); Sodium 138 MMOL/L (136-145); Total Protein 4.5 G/DL (6.4-8.2)
[2020-07-10] MEDS ORDERED: diphenhydrAMINE CAP 50 MG CAPSULE PO PRN (08:07)
[2020-07-10] MEDS: PANTOPRAZOLE 40 MG TABLET PO SCH (08:33)
[2020-07-10] MEDS: MONTELUKAST 10 MG TABLET PO SCH (08:33)
[2020-07-10] MEDS ORDERED: MAGNESIUM SULF RIDER 4 GM/100 ML PREMIX IV PRN (08:57)
[2020-07-10] MEDS ORDERED: MAGNESIUM SULF RIDER 2 GM/50 ML PREMIX IV PRN (08:57)
[2020-07-10 10:08] LABS: PT Patient Result 11.2 SECS (10.5-12.0)
[2020-07-10] MEDS: SODIUM CHLORIDE 0.9% 1,000 ML IV SCH (11:51)
[2020-07-10] MEDS ORDERED: HYDROCORTISONE 2.5% RECTAL CREAM 30 GM TUBE TOP PRN (15:14)
[2020-07-10] MEDS: ZINC OXIDE 16% PASTE 57 GM TUBE TOP SCH (23:55)
[2020-07-11] MEDS: VANCOMYCIN 50 MG/ML 60 ML/BOTTLE PO SCH ×2 (06:20→11:36)
[2020-07-11] MEDS ORDERED: LEVOTHYROXINE 50 MCG TABLET PO SCH (06:30)
[2020-07-11 06:35] LABS: Basophils # 0.1 10*3/uL (0.0-0.2); Basophils % 0.7 % (0.0-0.8); Eosinophils # 0.2 10*3/uL (0.0-0.87); Eosinophils % 2.7 % (0.00-10.9); Hemoglobin 11.5 GM/DL (12.0-16.0); Immature Granulocytes % 0.9 %; Immature Granulocytes Absolute 0.06 #; Lymphocytes # 1.6 10*3/uL (1.4-4.0); Lymphocytes % 23.3 % (21.3-54.2); Mean Corpuscular HGB Conc 31.9 GM/DL (32-36); Mean Corpuscular Volume 97.6 FL (87-102); Mean Platelet Volume 10.1 FL (9.6-12.0); Monocytes % 10.1 % (1.7-12.7); Neutrophils % 62.3 % (38.7-73.9); Platelet Count 164 T/CUMM (130-400); Red Blood Count 3.69 MC/CUMM (3.8-5.5); Red Cell Distribution Width 17.2 % (9.3-17.3); White Blood Count 6.7 T/CUMM (4-12)
[2020-07-11 06:45] LABS: Osmolality,Calculated 274.7 MOS/KG (273-304); Potassium 4.2 MMOL/L (3.5-5.1)
[2020-07-11] MEDS: MONTELUKAST 10 MG TABLET PO SCH (08:20)
[2020-07-11] MEDS: PANTOPRAZOLE 40 MG TABLET PO SCH (08:20)
[2020-07-11] MEDS: ZINC OXIDE 16% PASTE 57 GM TUBE TOP SCH (09:46)
[2020-07-11] MEDS: SODIUM CHLORIDE 0.9% 1,000 ML IV SCH (14:20)
[2020-07-11 17:01] VITALS: BP 127/85
[2020-07-11] MEDS ORDERED: TISSUE ADHESIVE 1 EACH APPLICATOR TOP ONE (17:04)
== END 2020-07-11 17:59 | disposition home health service (06) ==
LOC: N.5E → SUATTDRO 14:24
PROVIDERS: ADMIT Internal Medicine; ATTEND Family Medicine